=== PATIENT | male | born 1985 | race Caucasian/White ===

== ENCOUNTER 2019-02-04 00:46 | Emergency (ER) | payer OTHER ==
[2019-02-04 00:57] VITALS: RESP 20; TEMP 99
[2019-02-04] MEDS ORDERED: ADENOSINE 3 MG/ML 2 ML VIAL IVP STA ×2 (01:17→01:19)
[2019-02-04] MEDS ORDERED: LORazepam 2 MG/ML INJ IV STA ×2 (01:17→01:27)
[2019-02-04] MEDS ORDERED: SODIUM CHLORIDE 0.9% 1,000 ML IV STA (01:22)
[2019-02-04] MEDS ORDERED: DIPH,PERTUS(ACELL)TETVAC-LF 0.5 ML VIAL IM ONE (01:44)
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
[2019-02-04 02:03] LABS: Basophils # (A) 0.1 k/uL (0-0.2); Basophils % (A) 1 %; Eosinophils # (A) 0.3 k/uL (0-0.7); Eosinophils % (A) 2 %; HCT 46.8 % (39.0-53.0); HGB 15.8 gm/dL (13.0-17.5); Lymphocytes # (A) 4.2 k/uL (1.0-4.8); Lymphocytes % (A) 33 %; MCH 30.9 pg (25.0-35.0); MCHC 33.9 g/dL (31.0-37.0); MCV 91.1 fL (80.0-100.0); Mean Platelet Volume 8.2; Monocytes # (A) 0.7 k/uL (0-1.0); Monocytes % (A) 5 %; Neutrophils # (A) 7.1 k/uL (1.3-7.7); Neutrophils % (A) 55 %; Platelet Count 223 k/uL (150-450); RBC 5.14 m/uL (4.30-5.90); RDW 14.9 % (11.5-15.5); WBC 12.8 k/uL (3.8-10.6)
[2019-02-04 02:05] LABS: INR 0.9 (<1.2); Prothrombin Time 9.9 sec (9.0-12.0)
[2019-02-04 02:09] LABS: African American GFR (CKD) >90 (>60 ml/min/1.73 sqM); Anion Gap 18 mmol/L; Appearance,Urine Clear (Clear); Bilirubin,Urine Negative (Negative); Blood Urea Nitrogen 14 mg/dL (9-20); Blood,Urine Trace (Negative); Calcium 9.3 mg/dL (8.4-10.2); Carbon Dioxide 18 mmol/L (22-30); Chloride 104 mmol/L (98-107); Color,Urine Colorless; Creatine Kinase 183 U/L (55-170); Glucose 112 mg/dL (74-99); Glucose,Urine (UA) Negative (Negative); Ketones,Urine Negative (Negative); Leukocyte Esterase,Urine Negative (Negative); Magnesium 2.2 mg/dL (1.6-2.3); Mucus,Urine Rare /hpf; Nitrite,Urine Negative (Negative); PH, Urine 6.5 (5.0-8.0); Potassium 3.3 mmol/L (3.5-5.1); Protein,Urine Negative (Negative); RBC,Urine <1 /hpf (0-5); Sodium 140 mmol/L (137-145); Specific Gravity,Urine 1.002 (1.001-1.035); Urobilinogen,Urine <2.0 mg/dL (<2.0)
[2019-02-04 02:30] LABS: Alcohol 206 mg/dL
--- NOTE | 2019-02-04 02:31 | XR ---
EXAM: XR Chest, 2 Views CLINICAL HISTORY: Pain TECHNIQUE: Frontal and lateral views of the chest. COMPARISON: No relevant prior studies available. FINDINGS: Lungs: Hypoventilatory lungs. Nonspecific bibasilar opacities. Pleural space: Unremarkable. No pneumothorax. Heart: Unremarkable. No cardiomegaly. Mediastinum: Unremarkable. Bones/joints: No acute osseous abnormality. IMPRESSION: Hypoventilatory lungs. Bibasilar opacities are nonspecific and may represent atelectasis or an infectious or inflammatory process.
--- NOTE | 2019-02-04 02:34 | CT ---
EXAM: CT Head Without Intravenous Contrast CLINICAL HISTORY: Pain TECHNIQUE: Axial computed tomography images of the head/brain without intravenous contrast. CTDI is 0.085, 0.085, 25.8, 14.5, 25.8, 14.5 mGy and DLP is 2408 mGy-cm. This CT exam was performed using one or more of the following dose reduction techniques: automated exposure control, adjustment of the mA and/or kV according to patient size, and/or use of iterative reconstruction technique. COMPARISON: No relevant prior studies available. FINDINGS: Brain: Unremarkable. No acute hemorrhage, large hypodensity, or significant mass effect. Ventricles: Unremarkable. No ventriculomegaly. Bones/joints: Unremarkable. No acute fracture. Soft tissues: Unremarkable. Sinuses: Unremarkable. Mastoid air cells: Unremarkable. IMPRESSION: No acute intracranial hemorrhage or calvarial fracture. EXAM: CT Cervical Spine Without Intravenous Contrast CLINICAL HISTORY: Pain TECHNIQUE: Axial computed tomography images of the cervical spine without intravenous contrast. CTDI is 0.085, 0.085, 25.8, 14.5, 25.8, 14.5 mGy and DLP is 2408 mGy-cm. This CT exam was performed using one or more of the following dose reduction techniques: automated exposure control, adjustment of the mA and/or kV according to patient size, and/or use of iterative reconstruction technique. COMPARISON: No relevant prior studies available. FINDINGS: Artifacts: Motion. Vertebrae: No acute fracture or malalignment. Straightening of the normal cervical lordosis. Discs/spinal canal/neural foramina: No acute findings. No spinal canal stenosis. Soft tissues: Unremarkable. IMPRESSION: No acute fracture or malalignment.
--- NOTE | 2019-02-04 02:35 | XR ---
EXAM: XR Pelvis, 1 or 2 Views CLINICAL HISTORY: Pain TECHNIQUE: Frontal view of the pelvis. COMPARISON: No relevant prior studies available. FINDINGS: Limitations: The lateral right pelvis is excluded from the field-of- view. Bones/joints: No acute fracture or malalignment. Soft tissues: Unremarkable. IMPRESSION: No acute fracture or malalignment.
--- NOTE | 2019-02-04 02:40 | CT ---
EXAM: CT Maxillofacial Without Intravenous Contrast CLINICAL HISTORY: Pain TECHNIQUE: Axial computed tomography images of the face without intravenous contrast. CTDI is 0.085, 0.085, 25.8, 14.5, 25.8, 14.5 mGy and DLP is 2408 mGy-cm. This CT exam was performed using one or more of the following dose reduction techniques: automated exposure control, adjustment of the mA and/or kV according to patient size, and/or use of iterative reconstruction technique. COMPARISON: No relevant prior studies available. FINDINGS: Artifacts: Motion. Bones/joints: No acute fracture. Soft tissues: Unremarkable. Orbits: Unremarkable. Sinuses: Unremarkable. No air-fluid levels. IMPRESSION: No acute facial fractures.
[2019-02-04 02:41] VITALS: BP 133/75
[2019-02-04 02:50] LABS: Glucose,Whole Blood 96 mg/dL (75-99)
[2019-02-04 03:01] VITALS: PULSE 174
[2019-02-04] MEDS ORDERED: IBUPROFEN 400 MG TAB PO STA (03:19)
[2019-02-04] MEDS ORDERED: POTASSIUM CHLORIDE ER 20 MEQ TAB.ER PO STA (03:26)
--- NOTE | 2019-02-06 04:08 | CDI ---
Dear Ayaz Whittaker MD: Please do addendum length of the laceration repaired. Thank you, Karl Rojas, Grooming Salon Manager. If you have any questions, please contact Check Inspector at [phone]. [facility]
== END 2019-02-04 04:01 | disposition short-term general hospital (02) ==
LOC: EC 00:46
DX: S01.01XA Laceration without foreign body of scalp, initial encounter (principal); F10.129 Alcohol abuse with intoxication, unspecified; I47.1 Supraventricular tachycardia; S00.83XA Contusion of other part of head, initial encounter; F17.200 Nicotine dependence, unspecified, uncomplicated; Z88.0 Allergy status to penicillin; Z23 Encounter for immunization; Z82.49 Family history of ischemic heart disease and other diseases of the circulatory system; Y04.0XXA Assault by unarmed brawl or fight, initial encounter; Y92.009 Unspecified place in unspecified non-institutional (private) residence as the place of occurrence of the external cause
CPT/HCPCS: 99285; 12002; 96374; 96375; 96361; 90471; 36415; 93005; 80048; 82550; 83735; 85025; 85610; 81001; 72170; 71046; 72125; 70486; 70450; 90715; G0480; J2060; J0153; 80320